=== PATIENT | female | born 1945 | race African-American/Black ===

== ENCOUNTER 2018-11-15 03:41 | Inpatient (IN) | payer MEDICARE, BC, OTHER ==
[~2018-11-15] VITALS: Ht 152.4 cm; Wt 41.5 kg
[~2018-11-15 03:41] MED LIST: DAZIDOX10 MG PO; DITROPAN 5MG TAB5 MG PO; DITROPAN XL 5MG5 M1 PO; FENTANYL 50MCG TOP; FENTANYL 75MCG TD; FOSAMAX40 MG PO; IRON90 MG; LIPITOR20 MG PO; LYRICA 50MG CAP50 MG PO; MOBIC15 MG PO; MULTI VITAMINS1 TAB PO; NEURONTIN300 MG/CAP PO; NO HOME MEDICATIONS; PRINZIDE 25 MG-1 TAB PO; ROCEPHIN 2GM VIAL21 IJ; ROXICODONE 55 MG/TAB PO; VITAMIN D1000 IU PO; VITAMIN D31000 IU
--- NOTE | 2018-11-15 05:55 | NUR ---
Pt arrived to room 354 via EMS.
[2018-11-15 05:59] VITALS: BP 112/54; PULSE 98; TEMP 97.5
[2018-11-15] MEDS ORDERED: VITAMIND3 5000 (06:40)
[2018-11-15] MEDS ORDERED: FENTANYL 75MCG TD (06:41)
[2018-11-15] MEDS ORDERED: ROXICODONE15 MG PO (06:42)
[2018-11-15] MEDS ORDERED: LASIX 40MG TABL40 MG PO (06:43)
[2018-11-15] MEDS ORDERED: CARDIZEM120 MG PO (06:43)
[2018-11-15] MEDS ORDERED: NORVASC2.5 MG PO (06:43)
[2018-11-15] MEDS ORDERED: XARELTO20 MG PO (06:44)
[2018-11-15] MEDS ORDERED: K-DUR20 MEQ PO (06:44)
[2018-11-15] MEDS ORDERED: CARDIZEM CD 12120 MG PO (06:56)
--- NOTE | 2018-11-15 07:18 | NUR ---
Assessment completed- diminsiehd lung sounds in bases, irregular heart, on telemetry, some BLE edema, pules +3, cap refill <3 seconds, pain in back given roxicodone 15 mg. Unable to move around much in bed. HIgh fall risk. Given warm blanket. On 2 L oxygen via NC, Sp02 94-96%.
--- NOTE | 2018-11-15 07:21 | NUR ---
REPORT GIVEN TO SAMI MUNIZ.
--- NOTE | 2018-11-15 07:31 | NUR ---
FENTANYL PATCH REMOVED FROM LORENZA PT RESTING AT THIS TIME. PATCH GIVEN TO SAMI MUNIZ TO ADMINISTER WHEN PATIENT IS AWAKE.
[2018-11-15 07:40] LABS: BASO # 0.1 (0.0-0.2); BASO % 0.5 % (0.0-2.0); EOS % 0.3 % (0-4.0); GRAN # 9.8 (1.4-6.5); LYMPH # 1.3 (1.2-3.4); LYMPH % 10.8 % (20.0-51.0); MEAN CORPUSCULAR HGB CONC 32 g/dl (33.0-37.0); MONO % 8.1 % (1.7-9.3); PLATELET COUNT 252 K/mm3 (130-400); REDCELL DISTRIBUTION WIDTH-CV 20.9 % (11.5-14.5)
[2018-11-15 07:46] LABS: HEMATOCRIT 31.1 % (37.0-47.0); HEMOGLOBIN 9.8 g/dl (12.5-16.0); MEAN CORPUSCULAR HEMOGLOBIN 18 pg (27.0-31.0)
[2018-11-15 07:47] LABS: MEAN CELL VOLUME 59 fl (80.0-100.0)
[2018-11-15 07:50] VITALS: BP 105/52; PULSE 86; TEMP 98
[2018-11-15 08:03] LABS: ALANINE AMINOTRANSFERASE < 6 U/L (9-52); ALBUMIN 3.2 gm/dL (3.5-5.0); ALKALINE PHOSPHATASE 233 U/L (50-136); ANION GAP 6 mmol/L (7-16); AST,SGOT 26 U/L (15-37); BILIRUBIN,TOTAL 0.7 mg/dL (0.0-1.0); BLOOD UREA NITROGEN 22 mg/dL (7-17); CALCIUM 8.9 mg/dL (8.4-10.2); CARBON DIOXIDE 31 mmol/L (22-30); CHLORIDE 98 mmol/L (98-107); CREATININE, serum 0.84 (0.52-1.25); GLUCOSE 87 mg/dL (74-106); MAGNESIUM 1.9 mg/dL (1.6-2.3); PHOSPHOROUS 3.7 mg/dL (2.5-4.5); POTASSIUM 3.9 mmol/L (3.4-5.0); SODIUM 135 mmol/L (137-145); TOTAL PROTEIN 7.1 gm/dL (6.4-8.2)
[2018-11-15 08:09] LABS: TROPONIN-I 0.017 ng/mL (0.000-0.035)
[2018-11-15 08:27] LABS: THYROID STIMULATING HORMONE 0.884 uIU/mL (0.465-4.680)
[2018-11-15 08:55] LABS: PARTIAL THROMBOPLASTIN TIME 40.4 SECONDS (26.0-37.0)
[2018-11-15 09:50] LABS: PARTIAL THROMBOPLASTIN TIME 42.4 SECONDS (26.0-37.0)
--- NOTE | 2018-11-15 11:13 | NUR ---
Assessment charted and complete. Patient A&O x3, drowsy. but easily awakened. Complaints of pain in lower back and BLE, fentanyl patch right upper arm 75 mcg applied and pain medication given when requested. IV CDI. Patient admitted with IV from [place], that was not patent. VS stable. 2L NC O2, no report of SOB. Stage 2 ulcers right buttucks, informed patient that nursing staff will reposition patient to distribute weight and help with pain control. No further needs expressed from patient. Call light within reach
[2018-11-15 11:36] LABS: PARTIAL THROMBOPLASTIN TIME 43.1 SECONDS (26.0-37.0)
[2018-11-15 11:50] LABS: TROPONIN-I 0.017 ng/mL (0.000-0.035)
[2018-11-15 12:04] VITALS: BP 121/64; PULSE 58; TEMP 98.2
--- NOTE | 2018-11-15 12:30 | NUR ---
Compensation And Hris Analyst stopped by a couple of times but patient was sleeping.
[2018-11-15 14:34] LABS: PARTIAL THROMBOPLASTIN TIME 36.9 SECONDS (26.0-37.0)
[2018-11-15 16:32] LABS: PH 5 (5-8); SQUAMOUS EPITHELIAL 0-2 /hpf; URINE APPEARANCE Clear; URINE BACTERIA None Seen /hpf; URINE BILIRUBIN Negative (NEGATIVE); URINE BLOOD 1+ (NEGATIVE); URINE COLOR Yellow; URINE GLUCOSE Negative (NEGATIVE); URINE KETONE Negative (NEGATIVE); URINE LEUKOCYTE ESTERASE 1+ (NEGATIVE); URINE NITRATE Negative (NEGATIVE); URINE PROTEIN(semi-quant) Negative (NEGATIVE); URINE UROBILINOGEN Negative (NEGATIVE)
[2018-11-15 16:53] VITALS: BP 101/46; PULSE 62; TEMP 98.2
[2018-11-15 17:03] LABS: COLLECTION METHOD CLEAN CATCH
--- NOTE | 2018-11-15 18:04 | NUR ---
Patient had an uneventful day. Patient A&O,resting most of the shift and easily awakened. IV CDI, coban covering. Patient currently on left side, pillow under right side. Reporting pain in buttucks, patient was sitting up eating dinner. Patient was repositioned and did not request pain medication. VS stable. 2L O2 NC, no reported SOB. No further needs expressed from patient. Call light within reach
--- NOTE | 2018-11-15 20:25 | NUR ---
Patient resting in bed, reports pain 8/10 in back- given PRN roxicodone with has improved pain. Assessment completed- diminishe dlung sounds in bases, pulses +3, cap refill <2 seconds, cervantes catheter in place- clear,yellow. Stage III pressure ulcer on right buttocks. turns q2h
[2018-11-15 20:26] VITALS: BP 114/66; PULSE 97; TEMP 98
[2018-11-16 00:13] VITALS: BP 114/54; PULSE 84; TEMP 97.9
--- NOTE | 2018-11-16 02:20 | NUR ---
pt c/o back pain 05/14- given 15 mg PRN roxicodone
[2018-11-16 04:40] VITALS: BP 98/58; PULSE 81; TEMP 98
--- NOTE | 2018-11-16 05:17 | NUR ---
Pt slept on/off last night, some c/o back pain- given PRN roxicodone, pt also has fentanyl patch. Turns q2h, cervantes in place, meplex dressings on right buttocks. No needs at this time.
[2018-11-16 07:18] VITALS: BP 104/67; PULSE 72; TEMP 97.7
--- NOTE | 2018-11-16 07:30 | NUR ---
REPORT GIVEN TO SAMI LONG. PT ASLEEP AT [facility].
--- NOTE | 2018-11-16 08:00 | NUR ---
END OF SHIFT NOTE. PATIENT IS A&O. IRREGULAR HEART RHYTHM WITH IRREGULAR RATE NOTED, OTHERWISE VSS. ALL LUNG BELTRAN DIMINISHED UPON AUSCULTATION. SHALLOW BREATHING NOTED. PATIENT DENIES SOB. GENERALIZED WEAKNESS NOTED. BOWEL SOUNDS HYPOACTIVE ALL FOUR QUADRANTS. PATIENT TOLERATING DIET WITHOUT N/V. GAYLE CATHETER DRAINAGE SMALL AMOUNTS OF CLEAR PALE YELLOW URINE. MEPLEX TO COCCYX AND MID BACK AND ARE CD&I. PATIENT REPOSITIONED TOLERATED THROUGHOUT SHIFT. PATIENT RATES HER PAIN A 8-10 ON A 0-10 SCALE THROUGHOUT SHIFT AND GIVEN PAIN MEDICATIONS NEEDED.
--- NOTE | 2018-11-16 08:35 | NUR ---
PT NOT AVAILABLE
[2018-11-16 09:12] LABS: BASO % 0.2 % (0.0-2.0); EOS # 0.1 (0.0-0.7); EOS % 0.5 % (0-4.0); GRAN % 78.8 % (42.2-75.2); LYMPH # 1.3 (1.2-3.4); LYMPH % 10.5 % (20.0-51.0); MEAN CELL VOLUME 59 fl (80.0-100.0); MEAN CORPUSCULAR HGB CONC 31 g/dl (33.0-37.0); MONO # 1.2 (0.1-0.6); MONO % 9.6 % (1.7-9.3); PLATELET COUNT 236 K/mm3 (130-400); REDCELL DISTRIBUTION WIDTH-CV 20.5 % (11.5-14.5)
[2018-11-16 09:21] LABS: HEMATOCRIT 30.8 % (37.0-47.0); HEMOGLOBIN 9.6 g/dl (12.5-16.0); MEAN CORPUSCULAR HEMOGLOBIN 18 pg (27.0-31.0)
[2018-11-16 09:23] LABS: CALCIUM 8.4 mg/dL (8.4-10.2); CHOLESTEROL RISK RATIO 2.4; CREATININE, serum 0.8 (0.52-1.25); POTASSIUM 4.1 mmol/L (3.4-5.0)
[2018-11-16 09:40] LABS: RED BLOOD COUNT 5.19 M/mm3 (4.10-5.30)
[2018-11-16 10:43] VITALS: BP 119/60; PULSE 89; TEMP 98.2
--- NOTE | 2018-11-16 12:52 | NUR ---
Patient lives at home with her (Matias) in [place], [place] and plans to return home upon discharge. Patient's is her college specialist and patient is a retired principal administrative clerk. Patient uses a walker for mobility assistance, her primary care physician is Dr. Rebel De Guzman, her pharmacy is [facility], and she does not have advance directives completed at this time. No further needs at this time and addiction social worker will follow as needed.
--- NOTE | 2018-11-16 13:00 | NUR ---
LARGE INCONTINENT VOID AROUND GAYLE CATHETER. GAYLE AND STAT LOCK READJUSTED.
--- NOTE | 2018-11-16 15:15 | NUR ---
ORTHOPEDICS CALLED AND NOTIFIED OF CONSULT. NO ORDERS GIVEN AT THIS TIME.
[2018-11-16 16:13] VITALS: BP 97/49; PULSE 80; TEMP 98.2
--- NOTE | 2018-11-16 20:00 | NUR ---
PT IN BED WITH HOB AT 45 DEGREE ANGLE. FAMILY MEMBER ADVISED THAT PT HAS CHRONIC BACK AND LEG PAIN. ALSO, THAT PT IS USE TO TAKING OXYCODONE AT HOME. PT IS ALWAYS IN PAIN AT AN 8 TO 9/10. PT ADVISED THAT BILATERAL FEET ARE HURTING AND SHE CANNOT DISCRIBE HOW IT FEELS. PT IN BED ON RIGHT SIDE. CALL LIGHT WITHIN REACH AND FAMILY AT BEDSIDE.
[2018-11-16 20:17] VITALS: BP 109/49; PULSE 75; TEMP 97.8
--- NOTE | 2018-11-16 20:50 | NUR ---
DR. CORNELL WAS PAGED AND HE RETURNED THE CALL. ADVISED DR. CORNELL THAT THE RADIOLOGIST WANTED TO KNOW IF THEY COULD WAIT TILL MORNING TO GET THE XRAYS. DR. CORNELL ADVISED TO LET THE PT KNOW THAT IT WAS UP TO HER, BUT IF WE COULD NOT GET IT TILL THE MORNING THEN SHE WOULD HAVE TO WAIT ANOTHER DAY TO GET THE RESULTS, BECAUSE HE IS IN SURGERY MOST OF THE DAY TOMORROW. PT WAS ADVISED AND DAUGHTER ADVISED THAT THE PT IS WILLING. PT WAS GIVEN OXYCODONE FOR PAIN TO HELP WHEN HAVING TO MOVE HER FOR THE X-RAYS.
--- NOTE | 2018-11-16 22:00 | NUR ---
XRAY CAME AND HAD TAKEN THE XRAYS THAT DR. CORNELL ORDERED. PT WAS ASSISTED TO GET THE XRAYS X3. PT DID HAVE PAIN WHEN MOVING, BUT WAS STILL ABLE TO GET XRAYS.
[2018-11-17] VITALS (12 sets, daily range): BP systolic 91–127; BP diastolic 49–68; PULSE 57–88; TEMP 97.1–98.8
--- NOTE | 2018-11-17 00:29 | NUR ---
PT ONLY WANTS TO LAY ON HER RIGHT SIDE. PT WAS ASKED IN FRONT OF HER DAUGHTER, DONALDO, AND PT STATED, "I AM FINE ON MY RIGHT SIDE. I DO NOT WANT TO MOVE." PT AND DAUGHTER EXPLAINED THAT LAYING ON THE SAME SIDE FOR TOO LONG WILL CAUSE ULCERS. PT STILL DECLINED TO MOVE. PT HAD PAIN OF 8/10 IN FEET THAT IS UNDISCRIBABLE. GAVE PAIN MEDICATION. PT'S BP WAS 93/68. PT AND DAUGHTER EXPLAINED THAT SHE ALWAYS TAKES NARCOTIC MEDICATIONS AT HOME FOR PAIN WITH LOW BP. PT HAD X-RAYS TAKEN OF CHEST AND FEET. PT'S BRIEF CHANGED. PT HAS MEPILEX ON COCCYX AREA AND MID-UPPER BACK FOR ULCERS. PT'S FEET ARE WRINKLED, SCALEY, AND VERY DRY. PT'S DAUGHTER DID NOT WANT LOTION PUT ON HER FEET BECAUSE IT MAY CAUSE HER TOO MUCH PAIN TO DO SO. PT HAS CALL LIGHT WITHIN REACH.
--- NOTE | 2018-11-17 04:08 | NUR ---
PT AWAKE IN BED WITH C/O ABDOMINAL PAIN RATED AT A 8 TO 9 OUT OF 10. GAVE OXYCODONE FOR PAIN REQUESTED. PT STILL REFUSES TO REPOSITION FROM RIGHT SIDE. PT HAS NO FURTHER NEEDS, CALL LIGHT WITHIN REACH.
[2018-11-17 06:26] LABS: BASO # 0.1 (0.0-0.2); BASO % 0.4 % (0.0-2.0); EOS # 0.1 (0.0-0.7); EOS % 0.6 % (0-4.0); GRAN # 10.9 (1.4-6.5); GRAN % 78.1 % (42.2-75.2); HEMATOCRIT 31.9 % (37.0-47.0); LYMPH # 1.6 (1.2-3.4); LYMPH % 11.1 % (20.0-51.0); MEAN CELL VOLUME 59 fl (80.0-100.0); MEAN CORPUSCULAR HEMOGLOBIN 19 pg (27.0-31.0); MEAN CORPUSCULAR HGB CONC 31 g/dl (33.0-37.0); MONO # 1.3 (0.1-0.6); MONO % 9.5 % (1.7-9.3); PLATELET COUNT 224 K/mm3 (130-400); RED BLOOD COUNT 5.39 M/mm3 (4.10-5.30); REDCELL DISTRIBUTION WIDTH-CV 20.9 % (11.5-14.5)
[2018-11-17 06:38] LABS: CALCIUM 8.5 mg/dL (8.4-10.2); CREATININE, serum 0.74 (0.52-1.25); POTASSIUM 4.5 mmol/L (3.4-5.0)
[2018-11-17 06:45] LABS: PRE ALBUMIN 5.3 mg/dL (17.6-36.0)
[2018-11-17 08:37] LABS: INR 1.3 (0.8-3.0); PROTHROMBIN TIME 14.4 SECONDS (9.7-12.8)
--- NOTE | 2018-11-17 08:45 | NUR ---
Pt alert and oriented. Pt signed consent for thoracentesis scheduled this am. Pt pain controlled with PRN medications. Pt has been calling family to see when they will be coming. Pt IV patent with no complications. Pt has call light inreach. Pt has ulcers on bottom and back covered with melpilex. Wound care ordered. Ortho to see as well for left foot pain.
--- NOTE | 2018-11-17 11:13 | NUR ---
Met with son while Isa was going to her thoracentesis. Son lives in [place]. Reports his father is his mother's caregiver but also works at night so pt is home alone for long periods of time. She does transfer herself to the commode but if falls then just lays there until someone comes home. He is concerned about her quality of life and reports that it seems she has given up on living. He seems sure that she would want to stay at home. We did discuss hospice services briefly but will be here later and will discuss further with them together.
[2018-11-17 12:32] LABS: PLEURAL FLUID APPEARANCE HAZY; PLEURAL FLUID COLOR AMBER; PLEURAL FLUID RBC 5000 /mm3 (0-0); PLEURAL FLUID WBC 1497 /mm3
[2018-11-17 12:43] LABS: GLUCOSE,PLEURAL FLUID 92 mg/dL
--- NOTE | 2018-11-17 13:56 | NUR ---
Met with , son, and two daughters. Pt reports that "can't think about this" but then adds she doesn't want to . Family talks about doing the biopsy so that they will have more clear information about what they are considering. They are well aware that the biopsy will not be easy for their mother and that the risks are real and could be very life threatening. Her respiratory status, her current states of weakness/debility, and this large mass could compromise her life at any time. We reviewed supportive care vs comfort care, pt wants to be at home, but knows she needs more assistance around the clock at home. Hospice services vs home health were discussed. Annie DOBSON was advised of family's request for more information on biopsy and the risks it would entail.
--- NOTE | 2018-11-17 15:01 | NUR ---
Pallative care consult made. Patient and family would like to know what they are looking at when it comes to the tumor before they make a decision about hospice. They understand they are unable to leave patient alone at night. SW will continue to follow. Could need HH vs hospice.
--- NOTE | 2018-11-17 15:45 | NUR ---
PT 88% ON ROOMM AIR AIT REST. UNABLE TO WALK. O2 ON @ 1 LPM NC. SPO2 95%
--- NOTE | 2018-11-17 18:00 | NUR ---
Pt alert and oriented. Pt has family at bedside. Pt pain not well controlled in back with PRN meds and hospitalist updated and new order given for Lidocaine patch. Pt and family updated. Pt had thoracentesis today and 1000cc taken off and tolerated well. Pt requested meatloaf this evening and pt aware of possible milk additive. Pt still wants it and is adament about it. Pt family at bedside. Pt repositioned as pt allows. Pt cervantes draining clear yellow urine. Pt IV no complications. Pt has call light in reach.
--- NOTE | 2018-11-17 19:40 | NUR ---
Shift assessment complete. Pt resting in bed, awake, a&o, cooperative c cares. Pt c/o continued pain to back and feet, rated "9/10" at this time; PRN pain medical research assistant per pt request. Pt denies any other c/o. INT patent. Tutu to DD. Family at bedside. Pt denies further needs at this time. Call ligt in reach, bed alarm on. Will monitor.
[2018-11-18 05:33] VITALS: BP 103/54; PULSE 72; TEMP 98.1
--- NOTE | 2018-11-18 06:02 | NUR ---
Pt resting in bed, condition unchanged. Pt rested well this shift c few needs. Pain well controlled w regular pain medical concierge alternating Oxycodone/Dilaudid; pt consistantly rated pain "9/10" but was observed resting well. No needs at this time. Call light in reach, bed alarm on.
[2018-11-18 07:03] VITALS: BP 118/56; PULSE 63; TEMP 97.7
[2018-11-18 07:28] LABS: BASO % 0.3 % (0.0-2.0); EOS # 0.1 (0.0-0.7); EOS % 0.7 % (0-4.0); GRAN # 9.9 (1.4-6.5); GRAN % 77.8 % (42.2-75.2); LYMPH # 1.7 (1.2-3.4); LYMPH % 12.9 % (20.0-51.0); MEAN CELL VOLUME 59 fl (80.0-100.0); MEAN CORPUSCULAR HGB CONC 32 g/dl (33.0-37.0); MONO % 7.9 % (1.7-9.3); PLATELET COUNT 220 K/mm3 (130-400); RED BLOOD COUNT 5.15 M/mm3 (4.10-5.30); REDCELL DISTRIBUTION WIDTH-CV 20.7 % (11.5-14.5)
[2018-11-18 07:31] LABS: HEMATOCRIT 30.5 % (37.0-47.0); HEMOGLOBIN 9.6 g/dl (12.5-16.0); MEAN CORPUSCULAR HEMOGLOBIN 19 pg (27.0-31.0)
[2018-11-18 07:46] LABS: CALCIUM 8.3 mg/dL (8.4-10.2); CREATININE, serum 0.74 (0.52-1.25); POTASSIUM 4.5 mmol/L (3.4-5.0)
--- NOTE | 2018-11-18 08:52 | NUR ---
Received call from daughter Coretta that family and Isa had talked last evening and have decided that they would like to go home with hospice services. Coretta reports that they are cleaning and rearranging the house which may day "a couple days". Spoke with Lindy at [facility] who advises that they can admit on at the earliest. Relayed this information to Dr Bose who is willing to wait for discharge until as long as all parties are on board with a discharge. Called natty Hitchcock again who reports that they are ok with this and will plan on discharge to home. Also advises that they will need a hospital bed and oxygen from hospice which was relayed per FAX along with pt[facility] records to [facility].
--- NOTE | 2018-11-18 10:40 | NUR ---
MOJGAN and MOJGAN student attended clinical rounds and collaborated with palliative care nurse, Kelly. The patient and her family have decided to pursue going home with hospice through [facility]. A referral has been faxed to [facility]. The plan is for the patient to discharge home on with hospice to give the family time to get their house set up and get the needed equipment. SW to continue to follow.
[2018-11-18 11:20] VITALS: BP 102/65; PULSE 63; TEMP 97.3
--- NOTE | 2018-11-18 12:47 | NUR ---
Pt resting in bed and requests more pain medication. Pt respiration unlabored at this time. Pt has son at bedside. Pt states that family will be bringing in food for her.
--- NOTE | 2018-11-18 14:23 | NUR ---
Pt given increased dose of Roxanol due to uncontrolled pain with 5mg dose. Pt states it just does not seem to be doing much. Pt respirations 24 and pt alert and oriented with family at bedside.
[2018-11-18 17:41] VITALS: BP 112/58; PULSE 80; TEMP 98.1
--- NOTE | 2018-11-18 18:09 | NUR ---
Went to get PRN Roxanol for pt pain and syringe pulled out was in package and sealed and empty. Chelsea GALLARDO was present to witness. Charge notified and Dewey GALLARDO called pharmacy and spoke with Shashi to report the issue. New syringe pulled and was partially full at 0.7cc. Pt was to receive 0.5ml. Medications witnessed by Dewey GALLARDO and Chelsea GALLARDO. Pt given medication as ordered and repositioned in bed. Pt has call light in reach and has family at bedside. Pt family bringing in supper for her.
[2018-11-18 19:17] VITALS: BP 121/61; PULSE 90; TEMP 98.4
--- NOTE | 2018-11-18 19:18 | NUR ---
Pt report given to Vinh GALLARDO
--- NOTE | 2018-11-18 19:46 | NUR ---
Pt resing in bed, family in room with Pt, has some C/O pain medications given, shift assessment complete, left Pt call light in reach, bed in lowest position.
[2018-11-18 23:37] VITALS: BP 117/62; PULSE 88; TEMP 97.8
[2018-11-19 03:35] VITALS: BP 94/56; PULSE 95; TEMP 98
--- NOTE | 2018-11-19 04:46 | NUR ---
Pt was very restless during the early part of the night, increased dosage to 20mg roxanol every 1.5 hours and Pt seems to be resting more comfortably and was able to sleep, her respiration rate is not depressed with this dosing maintaining 16 - 18 respirations per minute, VS have remained stable.
[2018-11-19 06:47] LABS: CALCIUM 8.2 mg/dL (8.4-10.2); CREATININE, serum 0.79 (0.52-1.25); POTASSIUM 4.8 mmol/L (3.4-5.0)
[2018-11-19 06:53] LABS: BASO # 0.1 (0.0-0.2); BASO % 0.6 % (0.0-2.0); EOS # 0.2 (0.0-0.7); EOS % 1.2 % (0-4.0); GRAN # 8.9 (1.4-6.5); GRAN % 73.8 % (42.2-75.2); HEMOGLOBIN 10.3 g/dl (12.5-16.0); LYMPH # 1.8 (1.2-3.4); LYMPH % 15.2 % (20.0-51.0); MEAN CELL VOLUME 59 fl (80.0-100.0); MEAN CORPUSCULAR HEMOGLOBIN 19 pg (27.0-31.0); MEAN CORPUSCULAR HGB CONC 31 g/dl (33.0-37.0); MONO # 1.1 (0.1-0.6); MONO % 8.8 % (1.7-9.3); PLATELET COUNT 221 K/mm3 (130-400); RED BLOOD COUNT 5.54 M/mm3 (4.10-5.30); REDCELL DISTRIBUTION WIDTH-CV 21.2 % (11.5-14.5)
[2018-11-19 06:57] LABS: HEMATOCRIT 32.8 % (37.0-47.0)
--- NOTE | 2018-11-19 07:15 | NUR ---
Report received from SAMI Justice. PT in bed resting, wants to get resituated, tried to assist. IV was laying in bed when covers removed, will address with physicians before restarting a new IV site.
[2018-11-19 07:35] VITALS: BP 104/67; PULSE 52; TEMP 97.8
--- NOTE | 2018-11-19 09:04 | NUR ---
Palliative Care Nurse, Kelly, informed SW that [facility] has accepted the patient for hospice and that they will be ready to start services for the patient tomorrow, 11/20. SW to continue to follow.
--- NOTE | 2018-11-19 09:58 | NUR ---
Assessment charted. PT in bed resting on R side, very particular about placement, 5 pillows to assist with comfort. PRN pain meds provided. Pt had BM this am. Hospitalist TARSHA Norton to have no IV access at this time. skin issues addressed in assessment. all open areas covered. Will continue to monitor.
--- NOTE | 2018-11-19 10:58 | NUR ---
Phone call from daughter Coretta this morning. Concerned that "she sounded more congested yesterday" Wanted to make sure that her basic medications would be cocntinued to help with her heart. Again reviewed that hospice services would continue to focus on comfort, that she would not return to the hospital, but they would work with them to keep her comfortable. Comfort will be the primary focus. New pain medications are improving her comfort and family is pleased about that.
[2018-11-19 11:03] VITALS: BP 94/59; PULSE 93; TEMP 97.8
--- NOTE | 2018-11-19 11:42 | NUR ---
Pt offered comfort shawl with explanation but then decided she didn't want to wear it. Left at bedside if changes mind.
[2018-11-19] MEDS ORDERED: FENTANYL 100MCG TD (16:51)
[2018-11-19] MEDS ORDERED: Lidocaine 4% Patch TP (16:51)
[2018-11-19] MEDS ORDERED: LASIX 20MG TABL20 MG PO (16:51)
[2018-11-19] MEDS ORDERED: ROXANOL 20MG20 MG/ML SL (16:51)
--- NOTE | 2018-11-19 18:08 | NUR ---
Pt remains in bed on R side per request. PRN pain meds provided as needed throughout shift. Changed to comfort measures. Family at bedside all day. Will give bedside shift report to nightshift nurse who will resume care.
--- NOTE | 2018-11-19 20:00 | NUR ---
PT IN BED ON RIGHT SIDE, WITH HOB ELEVATED TO 45 DEGREE ANGLE. PT REFUSES TO TURN IN ANY OTHER POSITION. PT HAS BACK PAIN RATED AT 9/10 THAT IS SHARP. PT HAS BEEN GIVEN PAIN MEDICATION REQUESTED FOR PAIN. PT HAS FAMILY AT BEDSIDE AT THIS TIME. CALL LIGHT WITHIN REACH.
--- NOTE | 2018-11-20 03:03 | NUR ---
PT IN BED AND REPOSITIONED MORE ON BACK. PT HAS BEEN CHANGED AND ALSO LATER PLACED ON BEDPAN. PT HAS BEEN GIVEN PAIN MEDICATION, BUT ALWAYS PAIN IS 9/10. PT IN BED WITH HOB ELEVATED TO 45 DEGREE ANGLE, WITH LOTS OF PILLOWS. PT HAS BEEN PLEASANT AND COOPERATIVE WHEN DOING CARES. PT HAS NO FURTHER NEEDS, CALL LIGHT WITHIN REACH.
--- NOTE | 2018-11-20 04:01 | NUR ---
UNEVENTFUL NIGHT, PT SLEEP/RESTING WITH NO S/S OF PAIN OR DISCOMFORT. PT EARLIER WAS PLACED ON BEDPAN AND PT HAD A SMALL HARD BLACK STOOL. PT'S DRSG ON SACRAL AREA CHANGED. PT ADVISED THAT SINCE WE MOVED HER, HER PAIN WENT FROM 9 TO A LITTLE OVER 9/10 EVEN THOUGH SHE HAD PAIN MEDICATION GIVEN TO HER ALMOST AN HOUR BEFORE HER BEING PUT ON BEDPAN. PAIN IS NEVER BELOW A 9/10 EVEN THOUGH SHE IS GETTING PAIN MEDICATION REGULARLY.
--- NOTE | 2018-11-20 08:01 | NUR ---
Pt continues to rest in bed. She is awake and A/Ox4. She reports her pain is a 9/10 to her back. She requested PRN medication. PRN oral roxanol and roxicodone was given at this time. Lidoderm patch applied to back as well. No IV site per order. Pt sitting on bed page, bowel movement successful. Pt repositioned to back per request. Remains on 1L O2 per NC, resp. are even and unlabored. Son at bedside. Denies any other needs.
[2018-11-20] MEDS ORDERED: COLACE 100100 MG/CAP PO (08:58)
[2018-11-20] MEDS ORDERED: OXYCONTIN15 MG PO (09:04)
--- NOTE | 2018-11-20 09:20 | NUR ---
Pt was discharge home with hospice services to meet them at the house. She was sent with two wooden shoes to wear for comfort. Those were sent with her daughter. Hospice is to meet them at their home at 1000. EMS transport left hospital at 0920. Son and daughter here were very appreciative of care and support that they recieved.
--- NOTE | 2018-11-20 09:21 | NUR ---
The patient is to discharge back home with family support today, 11/20, and on hospice through [facility]. Transportation was set for 0920, via [facility]. MOJGAN informed the patient, patient's son, and the patient's nurse. They were all in agreeance. [facility] was going to meet the patient and her family at their house at 1000. MOJGAN presented and explained the IM form to the patient's son. The patient's son verbalized understanding, signed, and he was provided a copy. No additional needs at this time.
--- NOTE | 2018-11-20 09:32 | NUR ---
Pt transfered home with hospice via EMS. Pt was given additional dose of roxanol for transfer. Cam cath left in place per verbal order. Son took all belongings.
== END 2018-11-20 09:33 | disposition hospice, home (50) | DRG 189 ==
LOC: MEDICAL 03:41
PROVIDERS: Internal Medicine Critical Care Medicine; Internal Medicine Interventional Cardiology; Nurse Practitioner Family; ADMIT Family Medicine
PROC: 0W993ZX Drainage of Right Pleural Cavity, Percutaneous Approach, Diagnostic (ICD-10-PCS; principal; 2018-11-17)
DX: J96.01 Acute respiratory failure with hypoxia (principal); J90 Pleural effusion, not elsewhere classified; I50.32 Chronic diastolic (congestive) heart failure; E87.2 Acidosis; I48.1 Persistent atrial fibrillation; J98.11 Atelectasis; F11.20 Opioid dependence, uncomplicated; Z51.5 Encounter for palliative care; Z66 Do not resuscitate; Z79.01 Long term (current) use of anticoagulants; I11.0 Hypertensive heart disease with heart failure; I27.20 Pulmonary hypertension, unspecified; L89.152 Pressure ulcer of sacral region, stage 2; G89.4 Chronic pain syndrome; J44.9 Chronic obstructive pulmonary disease, unspecified; I08.1 Rheumatic disorders of both mitral and tricuspid valves; E78.5 Hyperlipidemia, unspecified; Z98.84 Bariatric surgery status; F17.210 Nicotine dependence, cigarettes, uncomplicated; S92.321A Displaced fracture of second metatarsal bone, right foot, initial encounter for closed fracture; S92.331A Displaced fracture of third metatarsal bone, right foot, initial encounter for closed fracture; S92.341A Displaced fracture of fourth metatarsal bone, right foot, initial encounter for closed fracture; W07.XXXA Fall from chair, initial encounter; R91.8 Other nonspecific abnormal finding of lung field; M51.37 Other intervertebral disc degeneration, lumbosacral region; Z91.19 Patient's noncompliance with other medical treatment and regimen
CPT/HCPCS: 99223-AI; 99231-AI; 99233-AI; 99239; J1940; Q9967